=== PATIENT | male | born 1955 | race Caucasian/White ===

== ENCOUNTER 2018-02-19 13:32 | Emergency (ER) | payer OTHER ==
[~2018-02-19] VITALS: Ht 182.9 cm; Wt 116.0 kg
[2018-02-19] MEDS ORDERED: TRAMADOL HYDROC50 MG PO (15:40)
[2018-02-19] MEDS ORDERED: MEDDOSEPAK PO (15:40)
[2018-02-19 15:53] VITALS: BP 138/89
== END 2018-02-19 15:53 | disposition home or self-care (01) | DRG 552 ==
LOC: ED 13:32
DX: S16.1XXA Strain of muscle, fascia and tendon at neck level, initial encounter (principal); X58.XXXA Exposure to other specified factors, initial encounter